=== PATIENT | female | born 1935 | race Caucasian/White ===

== ENCOUNTER 2018-11-01 04:13 | Inpatient (IN) ==
--- NOTE | 2018-11-01 04:23 | Emergency Department Note ---
Disposition Clinical Impression: Acute exacerbation of chronic obstructive airways disease Pneumonia Qualifiers: Pneumonia type: due to unspecified organism Laterality: right Lung location: lower lobe of lung Qualified Code(s): J18.1 - Lobar pneumonia, unspecified organism Disposition: Admitted As Inpatient Condition: Good Referrals: Celio oMreno CNP [Primary Care Provider] - Time of Disposition: 06:57 SOB HPI - General Stated Complaint: Difficulty Breathing Time Seen by Provider: 11/01/18 04:22 Source: patient Mode of arrival: private vehicle Limitations: no limitations Nursing Notes Reviewed: Yes Vital Signs Reviewed: Yes - History of Present Illness 83-year-old obese white female presents emergency department via ambulance complaining of shortness of breath. She says that she has not felt well for several days. She says that she used to breathing treatment at home with little to no relief prior to her arrival. She says that she has a history of COPD. She says that she is been having a productive cough and feels short of breath. She also complains of generalized abdominal pain that seems to be worse in her epigastric and lower abdomen. She says that she feels nauseous, but has not thrown up. She is home oxygen dependent and usually just uses 2 L at night. She says that lately she has been using it "24 7". She says that yesterday she got so bad that she turned it up to 3 L. and she is not sure if she is had congestive heart failure in the past. - Related Data Home Medications Medication Instructions Recorded Confirmed ALPRAZolam [Xanax 0.25 MG Tablet] 0.25 mg PO HS 05/14/16 05/13/17 Albuterol Sulfate [Albuterol 1 puff IH Q6HR PRN 05/14/16 05/11/18 Inhaler] Ascorbate Calcium [Vitamin C] 500 mg PO DAILY 05/14/16 05/11/18 Aspirin Enteric Coated [Aspirin EC] 81 mg PO DAILY 05/14/16 05/11/18 Citalopram Hydrobromide 20 mg PO DAILY 05/14/16 05/11/18 [Citalopram HBr] Ergocalciferol (VITAMIN D2) 50,000 unit PO DAILY 05/14/16 05/11/18 [Vitamin D2 (50,000 UNIT)] Ferrous Sulfate 325 mg PO DAILY 05/14/16 05/11/18 Fluticasone/Salmeterol [Advair 1 each IH BID 05/14/16 05/11/18 250-50 Diskus] Furosemide [Lasix] 20 mg PO DAILY 05/14/16 05/11/18 Metoprolol Tartrate [Lopressor] 50 mg PO BID 05/14/16 05/11/18 Montelukast [Singulair] 10 mg PO DAILY 05/14/16 05/11/18 Esomeprazole Magnesium [Nexium] 20 mg PO DAILY 05/13/17 05/11/18 Oxygen 1 each .ROUTE AD 05/13/17 05/11/18 Previous Rx's Medication Instructions Recorded Potassium Chloride [Klor-Con 10 meq PO DAILY #30 capsule.er 05/14/16 Sprinkle] Anastrozole [Arimidex] 1 mg PO DAILY #30 tablet 05/22/18 Allergies Allergy/AdvReac Type Severity Reaction Status Date / Time Penicillins [PCN] Allergy Rash Verified 05/13/17 11:22 Sulfa (Sulfonamide Allergy Rash Verified 05/13/17 11:22 Antibiotics) All systems ED: reviewed and negative except as stated. Constitutional: Denies: fever, chills, weakness, weight change Eyes: Denies: eye pain, eye discharge, vision change ENT ED: Denies: ear pain, throat pain, dental pain, hearing loss, epistaxis, congestion, dysphagia Cardiovascular: Denies: chest pain, palpitations, dyspnea on exertion, edema, syncope Respiratory: Reports: as per HPI, cough, dyspnea, wheezes, sputum production Gastrointestinal: Reports: as per HPI, abdominal pain, nausea. Denies: vomiting, diarrhea, constipation, hematemesis, melena, hematochezia Genitourinary: Denies: dysuria, frequency, hematuria, discharge Musculoskeletal: Denies: back pain, neck pain, arthralgia, myalgia Integumentary: Denies: rash, abrasion, lesions Neurological: Denies: headache, weakness, numbness, paresthesias, confusion, abnormal gait, vertigo Psychiatric: Denies: anxiety, depression, suicidal thoughts, homicidal thoughts, auditory hallucinations, visual hallucinations Endocrine: Denies: fatigue Hematological/Lymphatic: Denies: easy bleeding, easy bruising Past Medical History - Social History Smoking Status: Former smoker Smokeless Tobacco Status: No Alcohol use: Reports: none Drug use: Reports: none Physical Exam - General Limitations: no limitations General appearance: alert, in no apparent distress, obese - Head Head exam: atraumatic, normocephalic, normal inspection - Eye Eye exam: Present: normal appearance, PERRL, EOMI - ENT ENT exam: normal exam, normal oropharynx, mucous membranes moist - Neck Neck exam: Present: normal inspection, full ROM, trachea midline. Absent: meningismus, lymphadenopathy - Chest Chest inspection: Present: normal inspection, symmetric chest wall rise - Respiratory Respiratory exam: Present: wheezes, accessory muscle use. Absent: respiratory distress, stridor, prolonged expiratory phase - Cardiovascular Cardiovascular exam: Present: regular rate, normal rhythm, normal heart sounds - Abdominal Exam Abdominal exam: Present: soft, tenderness, normal bowel sounds. Absent: distention, guarding, rebound, rigidity, organomegaly, mass Abdominal tenderness: Present: epigastrium, suprapubic, mild - Extremities Exam Extremities exam: Present: normal inspection, full ROM. Absent: tenderness, pedal edema - Back Exam Back exam: Present: normal inspection, full ROM. Absent: tenderness - Neurological Exam Neurological exam: Present: alert, oriented X3, CN II-XII intact. Absent: motor sensory deficit - Psychiatric Psychiatric exam: Present: normal affect, normal mood - Skin Skin exam: Present: warm, dry, intact, normal color Course Course Narrative: The patient's condition improved following her breathing treatment and Solu- Medrol and she is feeling better at the time of disposition. Spoke to Dr. Workman at 6:55 AM and the patient will be admitted to the hospital here in [place]. Vital Signs Temperature 98.3 F 11/01/18 04:21 Pulse Rate 121 11/01/18 04:21 Respiratory Rate 22 11/01/18 04:21 Blood Pressure 177/109 11/01/18 04:21 O2 Sat by Pulse Oximetry 94 11/01/18 04:21 Temperature 98.3 F 11/01/18 04:21 Pulse Rate 121 11/01/18 04:21 Respiratory Rate 22 11/01/18 04:21 Blood Pressure 177/109 11/01/18 04:21 O2 Sat by Pulse Oximetry 96 11/01/18 04:21 Oxygen Delivery Oxygen Delivery Nasal Cannula Shortness of Breath/Dyspnea - Lab Data Lab results reviewed: Yes I reviewed the patient's lab results. Result diagrams: 11/01/18 05:03 11/01/18 05:03 Lab Results 11/01/18 11/01/18 11/01/18 Range/Units 05:03 05:03 05:03 WBC 11.8 H (4.3-11.1) K/mcL RBC 5.07 H (3.82-4.97) M/mcL Hgb 15.5 H (11.5-15.4) g/dL Hct 47.5 H (35.3-44.9) % MCV 93.7 (83.0-100.0) fL MCH 30.6 (28.0-33.3) pg MCHC 32.6 (31.6-35.5) g/dL RDW 12.7 (11.5-14.5) % Plt Count 236 (140-400) K/mcL MPV 10.3 (9.4-12.4) fL Immature Gran % 0.3 (0-4) % Seg Neutrophils % 64.5 % Lymphocytes % 21.8 % Monocytes % 5.9 % Eosinophils % 6.8 % Basophils % 0.7 % Neutrophils # 7.6 (1.6-8.9) K/mcL Lymphocytes # 2.6 (0.6-4.6) K/mcL Monocytes # 0.7 (0.0-1.3) K/mcL Eosinophils # 0.8 H (0.0-0.6) K/mcL Basophils # 0.1 (0.0-0.2) K/mcL PT (9.4-12.1) Seconds INR ABG pH (7.32-7.45) pH Units ABG pCO2 (35-45) mmHg ABG pO2 (85-104) mmHg ABG HCO3 (21-27) mEq/L ABG Total CO2 (20-26) mEq/L ABG O2 Saturation (95-98) % ABG Base Excess (-2 to 3) mEq/L Sodium 135 L (136-145) mEq/L Potassium 3.1 L (3.5-5.1) mEq/L Chloride 92 L (98-107) mEq/L Carbon Dioxide 39 H (23-29) mEq/L BUN 9 (8-23) mg/dL Creatinine 0.78 (0.60-1.20) mg/dL Est GFR ( Amer) > 60 (> 60) Est GFR (Non-Af Amer) > 60 (> 60) BUN/Creatinine Ratio 12 (6-26) Glucose 176 H (70-105) mg/dL Calculated Osmolality 283 (280-300) Lactic Acid 1.0 (0.5-2.2) mmol/L Calcium 10.2 (8.6-10.3) mg/dL Total Bilirubin 0.5 (0.3-1.0) mg/dL AST 16 (13-39) Units/L ALT 13 (7-52) Units/L Alkaline Phosphatase 92 (34-104) Units/L Troponin I (< 0.04) ng/mL B-Natriuretic Peptide (Less than 100) pg/mL Serum Total Protein 7.5 (6.4-8.9) g/dL Albumin 4.3 (3.5-5.7) g/dL Globulin 3.2 (2.4-3.5) g/dL Albumin/Globulin Ratio 1.3 (1.1-2.2) 11/01/18 11/01/18 11/01/18 Range/Units 05:03 05:03 05:03 WBC (4.3-11.1) K/mcL RBC (3.82-4.97) M/mcL Hgb (11.5-15.4) g/dL Hct (35.3-44.9) % MCV (83.0-100.0) fL MCH (28.0-33.3) pg MCHC (31.6-35.5) g/dL RDW (11.5-14.5) % Plt Count (140-400) K/mcL MPV (9.4-12.4) fL Immature Gran % (0-4) % Seg Neutrophils % % Lymphocytes % % Monocytes % % Eosinophils % % Basophils % % Neutrophils # (1.6-8.9) K/mcL Lymphocytes # (0.6-4.6) K/mcL Monocytes # (0.0-1.3) K/mcL Eosinophils # (0.0-0.6) K/mcL Basophils # (0.0-0.2) K/mcL PT 12.1 (9.4-12.1) Seconds INR 1.1 ABG pH (7.32-7.45) pH Units ABG pCO2 (35-45) mmHg ABG pO2 (85-104) mmHg ABG HCO3 (21-27) mEq/L ABG Total CO2 (20-26) mEq/L ABG O2 Saturation (95-98) % ABG Base Excess (-2 to 3) mEq/L Sodium (136-145) mEq/L Potassium (3.5-5.1) mEq/L Chloride (98-107) mEq/L Carbon Dioxide (23-29) mEq/L BUN (8-23) mg/dL Creatinine (0.60-1.20) mg/dL Est GFR ( Amer) (> 60) Est GFR (Non-Af Amer) (> 60) BUN/Creatinine Ratio (6-26) Glucose (70-105) mg/dL Calculated Osmolality (280-300) Lactic Acid (0.5-2.2) mmol/L Calcium (8.6-10.3) mg/dL Total Bilirubin (0.3-1.0) mg/dL AST (13-39) Units/L ALT (7-52) Units/L Alkaline Phosphatase (34-104) Units/L Troponin I < 0.03 (< 0.04) ng/mL B-Natriuretic Peptide 30 (Less than 100) pg/mL Serum Total Protein (6.4-8.9) g/dL Albumin (3.5-5.7) g/dL Globulin (2.4-3.5) g/dL Albumin/Globulin Ratio (1.1-2.2) 11/01/18 Range/Units 05:13 WBC (4.3-11.1) K/mcL RBC (3.82-4.97) M/mcL Hgb (11.5-15.4) g/dL Hct (35.3-44.9) % MCV (83.0-100.0) fL MCH (28.0-33.3) pg MCHC (31.6-35.5) g/dL RDW (11.5-14.5) % Plt Count (140-400) K/mcL MPV (9.4-12.4) fL Immature Gran % (0-4) % Seg Neutrophils % % Lymphocytes % % Monocytes % % Eosinophils % % Basophils % % Neutrophils # (1.6-8.9) K/mcL Lymphocytes # (0.6-4.6) K/mcL Monocytes # (0.0-1.3) K/mcL Eosinophils # (0.0-0.6) K/mcL Basophils # (0.0-0.2) K/mcL PT (9.4-12.1) Seconds INR ABG pH 7.40 (7.32-7.45) pH Units ABG pCO2 56 H (35-45) mmHg ABG pO2 155 H (85-104) mmHg ABG HCO3 35 H (21-27) mEq/L ABG Total CO2 36 H (20-26) mEq/L ABG O2 Saturation 99 H (95-98) % ABG Base Excess 8 H (-2 to 3) mEq/L Sodium (136-145) mEq/L Potassium (3.5-5.1) mEq/L Chloride (98-107) mEq/L Carbon Dioxide (23-29) mEq/L BUN (8-23) mg/dL Creatinine (0.60-1.20) mg/dL Est GFR ( Amer) (> 60) Est GFR (Non-Af Amer) (> 60) BUN/Creatinine Ratio (6-26) Glucose (70-105) mg/dL Calculated Osmolality (280-300) Lactic Acid (0.5-2.2) mmol/L Calcium (8.6-10.3) mg/dL Total Bilirubin (0.3-1.0) mg/dL AST (13-39) Units/L ALT (7-52) Units/L Alkaline Phosphatase (34-104) Units/L Troponin I (< 0.04) ng/mL B-Natriuretic Peptide (Less than 100) pg/mL Serum Total Protein (6.4-8.9) g/dL Albumin (3.5-5.7) g/dL Globulin (2.4-3.5) g/dL Albumin/Globulin Ratio (1.1-2.2) - Radiology Data Radiology results reviewed: Yes I reviewed the patient's radiology results. One view chest: IMPRESSION: Right basilar airspace disease suggests pneumonia. D/ / Justin Olivares MD / Justin Olivares MD - EKG Data EKG attestation: Yes I reviewed and interpreted this EKG. EKG results narrative: Twelve-lead EKG shows sinus tachycardia with a rate of 108, normal axis, no acute ST elevation or depression is appreciated.
[2018-11-01] MEDS ORDERED: Ipratropium/Albuterol Neb 3 ML IH ONE (04:35)
[2018-11-01] MEDS ORDERED: Ondansetron 4 MG/2 ML VIAL IVP ONE (04:35)
[2018-11-01] MEDS ORDERED: methylPREDNISolone 125 MG/2 ML VIAL IVP ONE ×2 (04:35→04:43)
[2018-11-01] MEDS ORDERED: Furosemide 40 MG/4 ML VIAL IVP ONE (04:43)
[2018-11-01 05:07] LABS: Basophils # 0.1 K/mcL (0.0-0.2); Basophils % 0.7 %; Eosinophils # 0.8 K/mcL (0.0-0.6); Eosinophils % 6.8 %; Hematocrit 47.5 % (35.3-44.9); Hemoglobin 15.5 g/dL (11.5-15.4); Immature Granulocytes % 0.3 % (0-4); Lymphocytes # 2.6 K/mcL (0.6-4.6); Lymphocytes % 21.8 %; Mean Corpuscular HGB Conc 32.6 g/dL (31.6-35.5); Mean Corpuscular Hemoglobin 30.6 pg (28.0-33.3); Mean Corpuscular Volume 93.7 fL (83.0-100.0); Mean Platelet Volume 10.3 fL (9.4-12.4); Monocytes # 0.7 K/mcL (0.0-1.3); Monocytes % 5.9 %; Neutrophils # 7.6 K/mcL (1.6-8.9); Platelet Count 236 K/mcL (140-400); Red Blood Count 5.07 M/mcL (3.82-4.97); Red Cell Distribution Width 12.7 % (11.5-14.5); Segmented Neutrophils % 64.5 %
[2018-11-01 05:11] LABS: INR 1.1; Prothrombin Time 12.1 Seconds (9.4-12.1)
[2018-11-01 05:17] LABS: ABG Base Excess 8 mEq/L (-2 to 3); ABG HCO3 35 mEq/L (21-27); ABG Oxygen Saturation 99 % (95-98); ABG PCO2 56 mmHg (35-45); ABG PO2 155 mmHg (85-104); ABG TCO2 36 mEq/L (20-26)
[2018-11-01 05:23] LABS: Alanine Aminotransferase 13 Units/L (7-52); Albumin 4.3 g/dL (3.5-5.7); Albumin/Globulin Ratio 1.3 (1.1-2.2); Alkaline Phosphatase 92 Units/L (34-104); Aspartate Amino Transferase 16 Units/L (13-39); BUN/Creatinine Ratio 12 (6-26); Bilirubin,Total 0.5 mg/dL (0.3-1.0); Blood Urea Nitrogen 9 mg/dL (8-23); Calcium 10.2 mg/dL (8.6-10.3); Carbon Dioxide 39 mEq/L (23-29); Chloride 92 mEq/L (98-107); Globulin 3.2 g/dL (2.4-3.5); Glucose 176 mg/dL (70-105); Osmolality,Calculated 283 (280-300); Potassium 3.1 mEq/L (3.5-5.1); Sodium 135 mEq/L (136-145); Total Protein 7.5 g/dL (6.4-8.9); eGFR For Non-African Americans > 60 (> 60)
[2018-11-01] MEDS ORDERED: Levofloxacin 750 MG/150 ML 750 MG/150 ML BAG IVPB ONE (06:46)
[2018-11-01] MEDS ORDERED: Levofloxacin 750 MG/150 ML 750 MG/150 ML BAG IVPB SCH (07:00)
[2018-11-01 07:32] LABS: Bilirubin,Urine Negative (Negative); Blood,Urine Negative (Negative); Clarity,Urine Clear (Clear); Color,Urine Yellow (Yellow); Glucose,Urine (UA) Normal (Normal); Ketones,Urine Negative (Negative); Leukocyte Esterase,Urine Trace (Negative); Nitrite,Urine Negative (Negative); Protein,Urine Negative (Neg-Trace); Specific Gravity,Urine 1.015 (1.010-1.025); Urobilinogen,Urine Normal (Normal)
[2018-11-01 08:09] LABS: Squamous Epithelial Cell,Urine Few per lpf (None-Few); WBC,Urine 0-3 per hpf (0-3)
[2018-11-01] MEDS ORDERED: Naloxone 0.4 MG/ML INJ IVP PRN (08:22)
[2018-11-01] MEDS ORDERED: NON-FORMULARY MEDICATION 1 EACH EACH (Oxygen [Oxygen] 1 EACH) SCH (10:45)
--- NOTE | 2018-11-01 10:55 | Internal Med History&Physical ---
Addendum entered and electronically signed by Augustine Workman MD 11/01/18 12:12: Patient with a couple of days of increasing cough and dyspnea. She uses oxygen at night but over the last couple of days as needed it "24 7." She has no fever but states that coughing has made her have "hot spells. She has no chest pain or dyspnea, except when coughing. The cough has been nonproductive of sputum. She has had mild lower abdominal pain which she relates to cough. Past medical history is remarkable for bilateral mastectomy after breast cancer, 6 years ago. She is on suppressive Arimidex for same. She has hypertension and is controlled for this. She has a history of congestive heart failure and this is a questionable diagnosis with her current admission. (Based upon chest x- ray.) She has hyperlipidemia, GERD, depression which was recently begun on an SSRI. This was because of loss of her and sister over the last several months. She is edentulous. Dentures are at home. She wears glasses. Patient has no complaint of chest discomfort, dyspnea, orthopnea, breathing problems, palpitations, nausea or vomiting, constipation or diarrhea, other changes in bowel habits, heartburn, difficulty with urination, kidney problems or kidney stones, fevers chills or sweats, rash or itching, seizures, headache or lightheadedness, heat or cold intolerance, blood problems or anemia, or other new complaints, except as mentioned above. Review of systems is otherwise negative. Examination: (Except as mentioned above): General: In no apparent distress, alert and oriented 3. She appears younger than stated age. Head: Atraumatic and normocephalic. Eyes: Extraocular muscles are intact, pupils equal round and reactive to light and accommodation. Sclerae anicteric. Ears: External ears are normal to inspection and hearing is grossly normal. Nose: Patent without lesion noted. Mouth: No intraoral lesions seen. She is edentulous. Neck: Supple with trachea midline. There is no thyromegaly or adenopathy and carotids are 2+ without bruit heard. Respiratory: No use of accessory muscles. Lungs have diffuse wheezing with no localization and no fremitus or egophony. Normal airflow. Cardiovascular: Regular rate and rhythm without murmur appreciated. Abdomen: Bowel sounds are normal. No hepatosplenomegaly masses but has mild diffuse tenderness. She makes complaint of epigastric discomfort with palpation. There is no mass, herniation, etc. Obese and therefore difficult to palpate deeply. Extremities: No cyanosis clubbing or edema. Neurological: A and O 3. Cranial nerves II through XII are intact. No focal deficits and no abnormal movements or postures. Skin: Warm and non-diaphoretic with no lesions noted. Breasts, pelvic and rectal: Not examined. Medications reviewed with nursing and patient. Original Note: Date of Encounter: 11/01/18 Time of Encounter: 10:45 Assessment and Plan (1) Pneumonia Current visit: Yes Status: Acute Patient is an admission who was admitted to emergency department after presenting with complaints of increased dyspnea and malaise over the past several days. He was initially treated in the emergency department with [facility] and started on cortical steroids. Patient has a long history of CHF and COPD. X-ray was obtained which suggest a right lower basilar pneumonia. Patient was started on Levaquin. This morning patient states that she her respiratory effort has improved although patient continues to have moderate expiratory wheezes heard throughout her upper gilbert and fine posterior bibasilar rales. History effort appears relaxed. Patient continues with a productive cough with thick yun sputum received. Patient continues to have a low-grade fever this morning at 99.1, but denies any fever or chills. We will continue with current antibiotics. Patient be evaluated by Dr. Workman with fur ther recommendations Qualifiers: Pneumonia type: due to unspecified organism Laterality: right Lung location: lower lobe of lung Qualified Code(s): J18.1 - Lobar pneumonia, unspecified organism (2) HTN (hypertension) Current visit: Yes Status: Acute Vital signs have been stable since her admission to facility. We will continue with current medications. Qualifiers: Hypertension type: essential hypertension Qualified Code(s): I10 - Essential (primary) hypertension (3) CHF (congestive heart failure) Current visit: Yes Status: Acute Patient with a history of CHF. Admitted for possible pneumonia. Lungs continue to have fine basilar rales. Patient denies any chest discomforts or palp itations. We will continue with current medications Qualifiers: Heart failure type: unspecified Heart failure chronicity: chronic Qualified Code(s): I50.9 - Heart failure, unspecified Internal Medicine - H&P: HPI Chief complaint: pneumonia Admitted From: Home Plans for Post Hospital Care: Home History of present illness: Ms. Ward is a 83 year old female, who is admitted to the emergency depa rtment. Patient presented with complaints of increasing shortness of breath over the past several days. Patient has a long history of COPD and CHF. Patient received nebulized treatments in the ER and stated she received some relief with that. Chest x-ray suggested right basilar pneumonia and patient continues on Levaquin at this time. Patient was started on cortical steroids and this morning states she feels her breathing has improved. Patient continues with productive cough showing a minimal amount of yun sputum. Patient denies any other discomforts or chest palpitations. Patient denies any fever/chills. Past Med Surg Social Fam HX - Past Medical History Medical history: cancer, COPD, hypertension, other Additional medical history: Bilateral Breast Cancer, cancer of LLE Psychiatric history: no psych history - Social History Smoking Status: Former smoker Smokeless Tobacco Status: No Alcohol use: none Drug use: none Internal Medicine - H&P: Meds ALPRAZolam [Xanax 0.25 MG Tablet] 0.25 mg PO BID 05/14/16 [History] Albuterol Sulfate [Albuterol Inhaler] 1 puff IH Q6HR PRN 05/14/16 [History] Ascorbate Calcium [Vitamin C] 500 mg PO DAILY 05/14/16 [History] Aspirin Enteric Coated [Aspirin EC] 81 mg PO DAILY 05/14/16 [History] Citalopram Hydrobromide [Citalopram HBr] 20 mg PO DAILY 05/14/16 [History] Ergocalciferol (VITAMIN D2) [Vitamin D2 (50,000 UNIT)] 50,000 unit PO DAILY 05/14/16 [History] Ferrous Sulfate 325 mg PO DAILY 05/14/16 [History] Fluticasone/Salmeterol [Advair 250-50 Diskus] 1 each IH BID 05/14/16 [History] Furosemide [Lasix] 20 mg PO DAILY 05/14/16 [History] Metoprolol Tartrate [Lopressor] 50 mg PO BID 05/14/16 [History] Montelukast [Singulair] 10 mg PO DAILY 05/14/16 [History] Esomeprazole Magnesium [Nexium] 20 mg PO DAILY 05/13/17 [History] Oxygen 1 each .ROUTE AD 05/13/17 [History] Anastrozole [Arimidex] 1 mg PO DAILY #30 tablet 05/22/18 [Rx] DULoxetine 30 mg DAILY 11/01/18 [History] Hydrochlorothiazide 25 mg PO DAILY 11/01/18 [History] Ipratropium/Albuterol Neb [Duoneb] 3 ml IH QID 11/01/18 [History] Potassium Chloride [Klor-Con Sprinkle] 20 meq PO BID 11/01/18 [History] Allergy/AdvReac Type Severity Reaction Status Date / Time Penicillins [PCN] Allergy Rash Verified 05/13/17 11:22 Sulfa (Sulfonamide Allergy Rash Verified 05/13/17 11:22 Antibiotics) All Systems PM: A 10-system review of systems was performed and is negative for pertinent findings except as documented above in the HPI. - Constitutional Constitutional: as per HPI, no chills, no fever(s), no night sweats - EENT Eyes: as per HPI, no change in vision, no discharge, no pain, no photophobia Ears: no ear discharge, no ear pain, no tinnitus Nose, mouth and throat: as per HPI, no dysphagia, no nasal discharge, no neck pain, no sore throat - Cardiovascular Cardiovascular ROS IM: as per HPI, no chest pain, no diaphoresis, no dyspnea, no lightheadedness, no palpitations, no syncope - Respiratory Respiratory: as per HPI, no cough, no dyspnea, no wheezing, no excessive phlegm production - Gastrointestinal Gastrointestinal: as per HPI, no abdominal pain, no diarrhea, no hematemesis, no hematochezia, no melena, no nausea, no vomiting - Genitourinary Genitourinary: no change in urinary stream, no dysuria, no flank pain, no hematuria - Musculoskeletal Musculoskeletal ROS IM: as per HPI, no numbness, no tingling - Integumentary Integumentary IM: as per HPI, no rash, no unusual bruising - Neurological Neurological ROS: as per HPI, no confusion, no convulsions, no focal weakness, no numbness, no tingling, no tremor(s) - Hematologic/Lymphatic Hematologic/Lymphatic: no easy bruising - Constitutional Vitals: Temp Pulse Resp BP Pulse Ox 99.1 F 120 14 125/76 95 11/01/18 08:43 11/01/18 08:43 11/01/18 08:43 11/01/18 08:43 11/01/18 08:43 General appearance: Present: A&O X 3, pleasant - Head Head exam: Present: atraumatic, normocephalic - Eye Eye exam: Present: PERRL, conjuntiva pink, sclera anicteric Pupils: Present: PERRL - Neck Neck exam general surgery: Present: supple, trachea midline. Absent: lymphadenopathy - Respiratory Respiratory exam: Present: CTAB, rales. Absent: accessory muscle use, rhonchi, wheezes Additional comments: Lungs have expiratory wheezes heard to upper gilbert and diminished breath sounds to lower half of lung field with noted fine posterior bibasilar rales. Effort appears relaxed. Productive cough with thick yun sputum received - Cardiovascular Cardiovascular exam: Present: RRR, +S1, +S2. Absent: diastolic murmur, gallop, rubs, systolic murmur - GI/Abdominal GI/Abdominal exam: Present: normal bowel sounds, soft, no peritoneal signs. Absent: distended, tenderness - Extremities Exam Extremities exam: Present: warm, radial pulses palpable and symmetrical. Absent: calf tenderness, cyanotic, pedal edema Additional comments: Slight nonpitting pedal edema - Neurological Exam Neurological exam: Present: CN II-XII intact, oriented X3, no focal deficits. Absent: pronater drift, facial droop, speech deficit - Skin Skin exam: Present: dry, intact Internal Med - H&P Results - Labs CBC & Chem 7: 11/01/18 05:03 11/01/18 05:03 Labs: Short CBC 11/01/18 Range/Units 05:03 WBC 11.8 H (4.3-11.1) K/mcL Hgb 15.5 H (11.5-15.4) g/dL Hct 47.5 H (35.3-44.9) % Plt Count 236 (140-400) K/mcL Neutrophils # 7.6 (1.6-8.9) K/mcL BMP 11/01/18 05:03 Sodium 135 L Potassium 3.1 L Chloride 92 L Carbon Dioxide 39 H BUN 9 Creatinine 0.78 Glucose 176 H Calcium 10.2 Cardiac Enzymes 11/01/18 Range/Units 05:03 Troponin I < 0.03 (< 0.04) ng/mL Liver Function 11/01/18 Range/Units 05:03 Total Bilirubin 0.5 (0.3-1.0) mg/dL AST 16 (13-39) Units/L ALT 13 (7-52) Units/L Alkaline Phosphatase 92 (34-104) Units/L Albumin 4.3 (3.5-5.7) g/dL Urine 11/01/18 Range/Units 05:12 Urine Color Yellow (Yellow) Urine Clarity Clear (Clear) Urine pH 7.0 (5.0-8.0) pH Units Ur Specific [place] 1.015 (1.010-1.025) Urine Protein Negative (Neg-Trace) mg/dL Urine Glucose (UA) Normal (Normal) mg/dL - ABG Interpretation ABG results: 11/01/18 05:13 ABG pH 7.40 ABG pCO2 56 H ABG pO2 155 H ABG HCO3 35 H ABG Total CO2 36 H ABG O2 Saturation 99 H ABG Base Excess 8 H - Impressions ITS Impressions Chest X-Ray 11/01/18 04:34 IMPRESSION: Right basilar airspace disease suggests pneumonia. D/ / Justin Olivares MD / Justin Olivares MD Interpreting Provider: Justin Olivares MD
[2018-11-01] MEDS: Aspirin Enteric Coated 81 MG Tablet PO SCH (11:53)
[2018-11-01] MEDS: hydroCHLOROthiazide 25 MG TABLET PO SCH (11:53)
[2018-11-01] MEDS: ALPRAZolam 0.25 MG TABLET PO SCH ×2 (11:53→20:57)
[2018-11-01] MEDS: Anastrozole 1 MG TABLET PO SCH (11:53)
[2018-11-01] MEDS: Ipratropium/Albuterol Neb 3 ML IH SCH ×3 (13:14→20:58)
[2018-11-01] MEDS: methylPREDNISolone 125 MG/2 ML VIAL IVP SCH ×2 (14:42→20:58)
--- NOTE | 2018-11-01 15:33 | Electrocardiograph Report ---
[address] [address] Test Date: 2018-11-01 Pat Name: Mitali Ward Department: 2000 Room: 111 Gender: F Automatic [employer] Operator: : [id number] Requested By: Jian Valderrama Order Number: [id number] Reading MD: Daniel Harley Measurements Intervals [place] Rate: 108 P: 64 NV: 173 QRS: 12 QRSD: 106 T: 50 QT: 343 QTc: 407 Interpretive Statements SINUS TACHYCARDIA POSSIBLE LEFT ATRIAL ENLARGEMENT ABNORMAL RHYTHM ECG Electronically Signed On 11-01-2018 15:31:21 EST by Daniel Harley
[2018-11-01] MEDS: *HR* Enoxaparin 40 MG/0.4 ML SYRINGE SQ SCH (18:57)
[2018-11-02] MEDS: methylPREDNISolone 125 MG/2 ML VIAL IVP SCH ×3 (05:28→21:02)
[2018-11-02] MEDS ORDERED: *HR* Enoxaparin 40 MG/0.4 ML SYRINGE SQ SCH (06:00)
[2018-11-02 06:27] LABS: BUN/Creatinine Ratio 21 (6-26); Blood Urea Nitrogen 17 mg/dL (8-23); Calcium 10.3 mg/dL (8.6-10.3); Carbon Dioxide 33 mEq/L (23-29); Chloride 90 mEq/L (98-107); Glucose 238 mg/dL (70-105); Osmolality,Calculated 279 (280-300); Potassium 3.6 mEq/L (3.5-5.1); Sodium 130 mEq/L (136-145); eGFR For Non-African Americans > 60 (> 60)
[2018-11-02] MEDS ORDERED: Levofloxacin 750 MG/150 ML 750 MG/150 ML BAG IVPB SCH ×3 (07:00→09:00)
[2018-11-02] MEDS: Ipratropium/Albuterol Neb 3 ML IH SCH ×4 (07:52→21:01)
[2018-11-02] MEDS: Levofloxacin 750 MG/150 ML 750 MG/150 ML BAG IVPB SCH (09:06)
[2018-11-02] MEDS: ALPRAZolam 0.25 MG TABLET PO SCH ×2 (09:06→21:01)
[2018-11-02] MEDS: Furosemide 20 MG TABLET PO SCH (09:07)
[2018-11-02] MEDS: Anastrozole 1 MG TABLET PO SCH (09:07)
[2018-11-02] MEDS: hydroCHLOROthiazide 25 MG TABLET PO SCH (09:07)
[2018-11-02] MEDS: Aspirin Enteric Coated 81 MG Tablet PO SCH (09:07)
--- NOTE | 2018-11-02 11:12 | Internal Med Progress Note ---
Addendum entered and electronically signed by Augustine Workman MD 11/02/18 11:32: I have personally performed a face to face evaluation on this patient. I have r eviewed and agree with the care plan. History and Exam by me shows: efrain madrigalignificant persistent cough but no increase in phlegm. She denies fever or chills. However, she has hot flashes when she coughs. She is dyspneic when she coughs but not otherwise. She is still slightly dizzy but feels this is improving. No other interval complaints. Discussed care with other providers and/or nursing. Patient has no complaint of chest discomfort, dyspnea, orthopnea, palpitations, nausea or vomiting, constipation or diarrhea, other changes in bowel habits, difficulty with urination, rash or itching, or other new complaints, except as mentioned above. Review of systems is otherwise negative. Examination: (Except as mentioned above): General: In no apparent distress. Alert and oriented 3. Nondiaphoretic. Patient is on oxygen at 2 L/m by nasal cannula. Head: Atraumatic and normocephalic. Respiratory: No use of accessory muscles. Lungs have increased airflow but have markedly decreased wheezing. Wheezing is persistent, diffusely. No egophony or signs of consolidation. Cardiovascular: Regular rate and rhythm without murmur appreciated. Abdomen: Bowel sounds are normal. No hepatosplenomegaly mass or tenderness appreciated. Obese and therefore difficult to palpate deeply. Extremities: No cyanosis clubbing or edema. Skin: Warm and non-diaphoretic with no new lesions noted. Original Note: Date of Encounter: 11/02/18 Time of Encounter: 11:07 - Assessment and plan (1) Pneumonia Current Visit: Yes Status: Acute Assessment and plan: No acute issues. Patient continues to have expiratory wheezes throughout upper g[place] and scattered basal rales. Patient noted become slightly dyspneic with effort of having to sit up in bed. Respiratory effort appears relaxed while at rest. Patient remains afebrile. We will continue with current antibiotics. Patient to continue with current bronchodilators. Qualifiers: Pneumonia type: due to unspecified organism Laterality: right Lung location: lower lobe of lung Qualified Code(s): J18.1 - Lobar pneumonia, unspecified organism (2) HTN (hypertension) Current Visit: Yes Status: Chronic Assessment and plan: Vital signs remained stable. We will continue with current medications. Qualifiers: Hypertension type: essential hypertension Qualified Code(s): I10 - Essential (primary) hypertension (3) CHF (congestive heart failure) Current Visit: Yes Status: Chronic Assessment and plan: No acute issues. Patient continues to have basilar congestion noted. Patient continues with treatment for pneumonia. We will continue with current medications. Qualifiers: Heart failure type: unspecified Heart failure chronicity: chronic Qualified Code(s): I50.9 - Heart failure, unspecified - Time Spent With Patient less than 15 minutes - Subjective Interval history: Patient appears relaxed but continues to complain of pulmonary congestion and a cough. Patient states that she feels her risk for status is improving slightly. Patient states that her cough remains productive. Patient also complains of constipation stating she has not had a bowel movement last few days. Denies any discomforts. - Constitutional Vitals: Temp Pulse Resp BP Pulse Ox 97.9 F 102 19 123/75 90 11/02/18 07:07 11/02/18 07:07 11/02/18 07:53 11/02/18 07:07 11/02/18 07:53 General appearance: Present: A&O X 3, pleasant - Head Head exam: Present: atraumatic, normocephalic - Eye Eye exam: Present: PERRL, conjuntiva pink, sclera anicteric Pupils: Present: PERRL - Neck Neck exam general surgery: Present: supple, trachea midline. Absent: lymphadenopathy - Respiratory Respiratory exam: Present: CTAB. Absent: accessory muscle use, rales, rhonchi, wheezes Additional comments: Patient continues to have moderate expiratory wheezes throughout upper [place] with fine scattered rales throughout basilar gilbert. Patient with productive cough and no sputum has been produced. Respiratory effort appears relaxed at rest the patient noted to be winded after exertion of having to sit up in bed. No hypoxia reported per nursing - Cardiovascular Cardiovascular exam: Present: RRR, +S1, +S2. Absent: diastolic murmur, gallop, rubs, systolic murmur - GI/Abdominal GI/Abdominal exam: Present: normal bowel sounds, soft, no peritoneal signs. Absent: distended, tenderness - Extremities Exam Extremities exam: Present: pedal edema, warm, radial pulses palpable and symmetrical. Absent: calf tenderness, cyanotic Additional comments: Slight nonpitting edema to bilateral lower legs - Neurological Exam Neurological exam: Present: CN II-XII intact, oriented X3, no focal deficits. Absent: pronater drift, facial droop, speech deficit - Skin Skin exam: Present: dry, intact Internal Medicine: Result - Labs CBC & Chem 7: 11/01/18 05:03 11/02/18 05:50 Labs: BMP 11/02/18 05:50 Sodium 130 L Potassium 3.6 Chloride 90 L Carbon Dioxide 33 H BUN 17 Creatinine 0.81 Glucose 238 H Calcium 10.3 - ABG Interpretation ABG results: ABG ABG pH 7.40 pH Units (7.32-7.45) 11/01/18 05:13 ABG pCO2 56 mmHg (35-45) H 11/01/18 05:13 ABG pO2 155 mmHg (85-104) H 11/01/18 05:13 ABG O2 Saturation 99 % (95-98) H 11/01/18 05:13 PT/INR, D-dimer PT 12.1 Seconds (9.4-12.1) 11/01/18 05:03 Consult Discharge Plan - Plan Referrals: Celio Moreno, TECHNICAL COMMUNICATION TEACHER [Primary Care Provider] -
[2018-11-02] MEDS: *HR* Enoxaparin 40 MG/0.4 ML SYRINGE SQ SCH (16:35)
[2018-11-03] MEDS: methylPREDNISolone 125 MG/2 ML VIAL IVP SCH ×2 (04:39→15:31)
[2018-11-03 05:04] LABS: Hematocrit 40.8 % (35.3-44.9); Mean Corpuscular HGB Conc 34.3 g/dL (31.6-35.5); Mean Corpuscular Volume 90.3 fL (83.0-100.0); Mean Platelet Volume 10.4 fL (9.4-12.4); Platelet Count 259 K/mcL (140-400); Red Blood Count 4.52 M/mcL (3.82-4.97); Red Cell Distribution Width 12.3 % (11.5-14.5)
[2018-11-03 05:21] LABS: Alanine Aminotransferase 13 Units/L (7-52); Albumin 3.8 g/dL (3.5-5.7); Albumin/Globulin Ratio 1.5 (1.1-2.2); Alkaline Phosphatase 72 Units/L (34-104); Aspartate Amino Transferase 21 Units/L (13-39); BUN/Creatinine Ratio 25 (6-26); Bilirubin,Total 0.4 mg/dL (0.3-1.0); Blood Urea Nitrogen 20 mg/dL (8-23); Calcium 9.6 mg/dL (8.6-10.3); Carbon Dioxide 29 mEq/L (23-29); Chloride 91 mEq/L (98-107); Globulin 2.6 g/dL (2.4-3.5); Glucose 229 mg/dL (70-105); Magnesium 1.9 mg/dL (1.6-2.6); Osmolality,Calculated 282 (280-300); Potassium 3.9 mEq/L (3.5-5.1); Sodium 131 mEq/L (136-145); Total Protein 6.4 g/dL (6.4-8.9); eGFR For Non-African Americans > 60 (> 60)
[2018-11-03] MEDS: ALPRAZolam 0.25 MG TABLET PO SCH (08:26)
[2018-11-03] MEDS: hydroCHLOROthiazide 25 MG TABLET PO SCH (08:27)
[2018-11-03] MEDS: Furosemide 20 MG TABLET PO SCH (08:28)
[2018-11-03] MEDS: Anastrozole 1 MG TABLET PO SCH (08:28)
[2018-11-03] MEDS: Aspirin Enteric Coated 81 MG Tablet PO SCH (08:28)
[2018-11-03] MEDS: Ipratropium/Albuterol Neb 3 ML IH SCH ×2 (08:58→13:33)
[2018-11-03] MEDS: Levofloxacin 750 MG/150 ML 750 MG/150 ML BAG IVPB SCH (09:53)
[2018-11-03 11:38] VITALS: BP 118/72
--- NOTE | 2018-11-03 11:46 | Discharge Summary ---
Addendum entered and electronically signed by Augustine Workman MD 11/03/18 12:59: I have personally performed a face to face evaluation on this patient. I have r eviewed and agree with the care plan. History and Exam by me shows: Patient is feeling better. Her cough is still present but better, dyspnea is better and she has no sputum production. She denies fevers chills, etc. She feels like she needs to "cough up the phlegm." She is still not had a bowel movement. We talked about the fact that Colace will help her to have a softer bowel movement but not make her go. We recommended the use of MiraLAX and she concurs that she will. She is concerned only about travel when he comes to going home but feels stable enough to go, otherwise. Discussed care with other providers and/or nursing. Patient has no complaint of chest discomfort, dyspnea, orthopnea, palpitations, nausea or vomiting, constipation or diarrhea, other changes in bowel habits, difficulty with urination, rash or itching, or other new complaints, except as mentioned above. Review of systems is otherwise negative. Examination: (Except as mentioned above): General: In no apparent distress. Alert and oriented 3. Nondiaphoretic. She remains on oxygen at 2 L per nasal cannula Head: Atraumatic and normocephalic. Respiratory: No use of accessory muscles. She has minimal wheezing, with good airflow. No rales or rhonchi. No egophony. Cardiovascular: Regular rate and rhythm without murmur appreciated. Abdomen: Bowel sounds are normal. No hepatosplenomegaly mass or tenderness appreciated. Obese and therefore difficult to palpate deeply. Extremities: No cyanosis clubbing or edema. Skin: Warm and non-diaphoretic with no new lesions noted. She is much improved. We have attributed due to her white count elevation to due to margination but this should be followed by her primary care physician and we have told her that if she has any infectious symptoms she should seek urgent medical attention. Original Note: Orders not resulted at time of discharge: Pending orders 11/01/18 05:05 Culture,Blood [BC] Stat Date of Encounter: 11/03/18 Time of Encounter: 11:43 - Discharge Diagnosis (1) Pneumonia Priority: Primary Status: Acute Comments: improving. will discharge with Prednisone and Levaquin. has home O2. instru cted to wear at all times until follow up with PCP Mulugeta Moreno in 1 week. Qualifiers: Pneumonia type: due to unspecified organism Laterality: right Lung location: lower lobe of lung Qualified Code(s): J18.1 - Lobar pneumonia, unspecified organism (2) HTN (hypertension) Priority: Secondary Status: Chronic Comments: Controlled with current medication. Monitor blood pressure. Follow up with P CP. Qualifiers: Hypertension type: essential hypertension Qualified Code(s): I10 - Essential (primary) hypertension (3) CHF (congestive heart failure) Priority: Secondary Status: Chronic Comments: Controlled with current medication. Follow up with PCP. Qualifiers: Heart failure type: unspecified Heart failure chronicity: chronic Qualified Code(s): I50.9 - Heart failure, unspecified Hospital course: Ms. Ward is a 83 year old female discharging to home after hospital admission with pneumonia. Patient is improving. Has been afebrile. Denies shortness of breath or chest pain. Denies fever, chills, nausea vomiting or diarrhea. Has been receiving IV Levaquin and steroids. Will discharge with Levaquin 500 mg daily for 7 days and prednisone 40 mg daily for 5 days. Will continue home 02 and follow up with PCP within one week. Patient states she does have nebulizers and supplies at home. Discharge discussed with: patient, nurse, social work - Time Spent with Patient Total time spent providing and/or coordinating discharge services: Less than 30 minutes - Discharge Medications Home Medications: ALPRAZolam [Xanax 0.25 MG Tablet] 0.25 mg PO BID 05/14/16 [History] Albuterol Sulfate [Albuterol Inhaler] 1 puff IH Q6HR PRN 05/14/16 [History] Ascorbate Calcium [Vitamin C] 500 mg PO DAILY 05/14/16 [History] Aspirin Enteric Coated [Aspirin EC] 81 mg PO DAILY 05/14/16 [History] Citalopram Hydrobromide [Citalopram HBr] 20 mg PO DAILY 05/14/16 [History] Ergocalciferol (VITAMIN D2) [Vitamin D2 (50,000 UNIT)] 50,000 unit PO DAILY 05/14/16 [History] Ferrous Sulfate 325 mg PO DAILY 05/14/16 [History] Fluticasone/Salmeterol [Advair 250-50 Diskus] 1 each IH BID 05/14/16 [History] Furosemide [Lasix] 20 mg PO DAILY 05/14/16 [History] Metoprolol Tartrate [Lopressor] 50 mg PO BID 05/14/16 [History] Montelukast [Singulair] 10 mg PO DAILY 05/14/16 [History] Esomeprazole Magnesium [Nexium] 20 mg PO DAILY 05/13/17 [History] Oxygen 1 each .ROUTE AD 05/13/17 [History] Anastrozole [Arimidex] 1 mg PO DAILY #30 tablet 05/22/18 [Rx] DULoxetine 30 mg DAILY 11/01/18 [History] Hydrochlorothiazide 25 mg PO DAILY 11/01/18 [History] Ipratropium/Albuterol Neb [Duoneb] 3 ml IH QID 11/01/18 [History] Potassium Chloride [Klor-Con Sprinkle] 20 meq PO BID 11/01/18 [History] Docusate [Colace] 100 mg PO BID capsule 11/03/18 [Rx] Allergies/Adverse Reactions: Allergy/AdvReac Type Severity Reaction Status Date / Time Penicillins [PCN] Allergy Rash Verified 05/13/17 11:22 Sulfa (Sulfonamide Allergy Rash Verified 05/13/17 11:22 Antibiotics) Date of admission: 11/02/18 12:21 Primary care physician: Celio Moreno CNP Consults: 11/01/18 11:51 Consult to Oil Developer [CONS] Routine Reason for SW Consult: living at home evaluation Discharging clinician: Augustine Workman Anticipated date of discharge: 11/03/18 - Constitutional Vitals: Temp Pulse Resp BP Pulse Ox 98.6 F 92 16 118/72 95 11/03/18 11:37 11/03/18 11:37 11/03/18 11:37 11/03/18 11:37 11/03/18 11:37 General appearance: Present: cooperative, A&O X 3, pleasant, no acute distress, obese, answers questions appropriately - Head Head exam: Present: atraumatic, normocephalic - Eye Eye exam: Present: PERRL, conjuntiva pink, sclera anicteric Pupils: Present: PERRL - Neck Neck exam general surgery: Present: supple, trachea midline. Absent: lymphadenopathy - Respiratory Respiratory exam: Absent: accessory muscle use, rales, rhonchi, wheezes Additional comments: slight expiratory wheeze BUL. clear throughtout rest of lung gilbert. - Cardiovascular Cardiovascular exam: Present: RRR, +S1, +S2. Absent: diastolic murmur, gallop, rubs, systolic murmur - GI/Abdominal GI/Abdominal exam: Present: normal bowel sounds, soft, no peritoneal signs. Absent: distended, tenderness - Extremities Exam Extremities exam: Present: warm, radial pulses palpable and symmetrical. Absent: calf tenderness, cyanotic, pedal edema Additional comments: slight nonpitting BLE edema - Neurological Exam Neurological exam: Present: CN II-XII intact, oriented X3, no focal deficits. Absent: pronater drift, facial droop, speech deficit - Skin Skin exam: Present: dry, intact - Patient Status Disposition: Home, Self-Care Condition: Good Functional capacity at discharge: uses cane/walker Overall status at discharge: patient is progressing back to baseline - Discharge Instructions Instructions: Chronic Obstructive Pulmonary Disease (DC), Pneumonia (DC) Follow Up With: Celio Moreno CCO [Primary Care Provider] - 11/13/18 11:20 am Forms: ED Satisfaction Letter - Diet and Activity Activity: increase activity as tolerated Diet: low salt diet
[2018-11-03] MEDS ORDERED: predniSONE 20 MG TABLET PO ONE (12:24)
== END 2018-11-03 15:33 | disposition home or self-care (01) | DRG 194 ==
LOC: EMEROOGRE 04:13 → INPGRE 04:13